=== PATIENT | male | born 1965 | race Caucasian/White ===

== ENCOUNTER 2023-04-10 16:43 | Observation (INO) ==
--- NOTE | 2023-04-10 16:59 | ED Triage Note ---
Date of Service April 10, 2023 History of Present Illness This patient was briefly evaluated while in triage. An abbreviated physical exam was performed. This patient is a 58-year-old Male who presents to the ED for evaluation of sinus infection. Went to [facility] at [facility] on [address]. Started on A moxicillin and has not helped and now feel worse. Went back today and blood pressure was elevated. On 2 blood pressure medicines. Normally take at night. Takes 180 of cardia and 40mg of lisinopril. No dizzy or lightheaded. Sinus congestion for 2-3 weeks. Notes sinus congestion. At [facility] on Sunday for granddaughter and one person found out had RSV. Notes many family members with cold sx. Physical Exam GENERAL: 58 year old male. In no acute distress. Elevated BP. SKIN: No lesions or rashes. HEART: Regular rate and rhythm. LUNGS: Clear to auscultation. NEURO: Alert and oriented. No deficits. MUSCULOSKELETAL: No deformities to inspection of the extremities. PSYCH: Patient is pleasant and answers all questions appropriately. Initial orders for labs and / or imaging were placed and patient was placed in the waiting area until a bed is available. Please see further documentation for the full ED course.
--- NOTE | 2023-04-10 17:23 | CT Scan Report ---
HEAD CT NONCONTRAST CT DOSE: 625.8 mGy.cm HISTORY: Forehead/facial pain with sinus congestion, HTN TECHNIQUE: Multiaxial CT images of the head were performed without the use of intravenous contrast. A utomated exposure control was utilized for this study. A dose lowering technique was utilized adheri ng to the principles of ALARA. Comparison: CT sinuses 04/03/2016. Findings: The paranasal sinuses and mastoid air cells are clear. The calvarium and skull base are int act. The ventricles and sulci are within normal limits. There is no mass, hematoma, midline shift, or acute infarct. Impression: No acute intracranial abnormality. ACT 112: Negative or not required by law. Electronically signed by: Juanjo Ferrell M.D. 04/10/2023 5:22 PM
[2023-04-10 17:29] LABS: Basophils # (auto) 0.05 K/uL (0.00-0.20); Basophils % (auto) 0.6 %; Eosinophils # (auto) 0.16 K/uL (0.00-0.50); Eosinophils % (auto) 1.9 %; Hematocrit (blood only) 46.1 % (42.0-52.0); Hemoglobin 15.2 g/dl (14.0-18.0); Immature Granulocytes # (auto) 0.03 K/uL (0.01-0.20); Immature Granulocytes % (auto) 0.3 %; Lymphocytes % (auto) 30.2 %; Mean Corpuscular Volume 91.1 fL (80.0-100.0); Mean Platelet Volume 9.4 fL (9.4-12.4); Monocytes # (auto) 0.86 K/uL (0.11-0.59); Neutrophils # (auto) 4.92 K/uL (1.40-6.50); Platelet Count 319 K/uL (130-400); RDW Coefficient of Variation 12.6 % (11.5-14.5); RDW Standard Deviation 42.2 fL (36.4-46.3); Red Blood Count 5.06 M/uL (4.70-6.10); White Blood Count 8.62 K/ul (4.8-10.8)
--- NOTE | 2023-04-10 17:29 | XRay Report ---
XR chest 1V not portable HISTORY: Hypertension. COMPARISON: None. FINDINGS: The cardiac silhouette is top normal in size. No focal lung consolidations to suggest pneum onia. No evidence for pulmonary edema. No pleural effusions. No pneumothorax. No acute fractures. Haz y appearance to the right medial lung base likely represents prominent mediastinal fat. IMPRESSION: No acute process. ACT 112: Negative or not required by law. Electronically signed by: Juanjo Ferrell M.D. 04/10/2023 5:28 PM
[2023-04-10 17:43] LABS: Albumin Globulin Ratio 1.3 (0.9-2); BUN Creatinine Ratio 14.4 (10-20); Bilirubin,Total 0.3 mg/dl (0.2-1.0); Calcium 8.9 mg/dl (8.6-10.3); Creatinine Clr Calc Pharmacy 93.1 ml/min; Est GFR (African American) 78.4 ml/min; Est GFR (Non-African American) 67.6 ml/min; Globulin 3.1 gm/dl (2.5-4.0); Magnesium 2.1 mg/dl (1.7-2.4); Potassium 3.9 mmol/L (3.5-5.1); Total Protein 7.1 gm/dl (6.0-8.3)
[2023-04-10 17:50] LABS: Troponin I High Sensitivity 6.3 pg/ml (0-20)
[2023-04-10 17:53] LABS: INR 0.9 (0.9-1.1); Partial Thromboplastin Ratio 1.1; Partial Thromboplastin Time 30.9 Seconds (21.0-31.0); Prothrombin Time 10.2 Seconds (9.0-12.0)
[2023-04-10 17:59] LABS: Thyroid Stimulating Hormone 1.672 uIu/ml (0.300-4.500)
[2023-04-10] MEDS ORDERED: KETOROLAC TROMETHAMINE 15 MG/ML VIAL IV ONE (18:56)
--- NOTE | 2023-04-10 18:59 | Emergency Department Note ---
Impression & Plan Hypertensive urgency, Headache, Sinusitis ED Provider Note NAME: LEEANN BADILLO III AGE: 58 SEX: M : 1965 ARRIVES VIA: Walk-In INFORMANT: Patient ED PROVIDER(S): Cory Thomas DO CHIEF COMPLAINT: HTN HPI: Patient is a 58-year-old male who presents to the ER for elevated blood pressures. Patient was treated for sinusitis with amoxicillin and went back to urgent care today as the pain was still present and anterior aspect of his head. Pain is worse when he pushes on these regions. He notes he is very stressed currently as his son is in rehab for drug and alcohol for the second time. He takes his blood pressure medications at night. He believes he is on 180 of lisinopril and 40 of lisinopril. Patient denies any chest pain shortness of breath. No weakness or numbness in the arms or legs. No other exacerbating or remitting factors. ADDITIONAL HISTORY OBTAINED: Per HPI Chronic Medical/Social Conditions Affecting Care: Per HPI PAST MEDICAL HISTORY:See Below PAST SURGICAL HISTORY:See Below FAMILY HISTORY:See Below SOCIAL HISTORY:See Below HOME MEDICATIONS:See Below ALLERGIES:See Below VITALS:See Below PHYSICAL EXAMINATION: GENERAL: Sitting up in bed, alert, well appearing, well nourished, no distress, non-toxic EYE EXAM: normal conjunctiva. PERRL and EOM's grossly intact. HEAD: Tenderness over the frontal and maxillary sinuses OROPHARYNX: no exudate, no erythema, lips, buccal mucosa, and tongue normal and mucous membranes are moist NECK: supple, no nuchal rigidity, no adenopathy, non-tender LUNGS: Clear to auscultation. Normal chest wall mechanics HEART: no murmurs, S1 normal and S2 normal ABDOMEN: abdomen soft, non-tender, normo-active bowel sounds, no masses, no rebound or guarding. UPPER EXTREMITIES: upper extremities are grossly normal. LOWER EXTREMITIES: No pitting edema. NEURO EXAM: Normal sensorium, cranial nerves II-XII intact, normal speech, no weakness of arms, no weakness of legs. No drift. Finger to nose intact. Gross sensation intact. MEDICAL DECISION MAKING: Patient is a 58-year-old male who presents ER for above-stated complaint. IV was established blood work was obtained. External records reviewed. Labs show no significant leukocytosis or anemia. INR unremarkable. BMP with LFTs bilirubin was unremarkable. Troponin was negative. Lipase was normal. TSH was normal. Chest x-ray was unremarkable. EKG was nondiagnostic. CT head was negative. X-ray was unremarkable. Systolic pressures were 240s to 200s. He was initially given his home medications and monitored for over an hour and blood pressure still remained in the 200s. He was then given IV hydralazine. Dr. Mandel requested IV Cardizem 10 mg which was ordered by myself. He was monitored and admitted to the hospitalist service for persistent elevation in his blood pressures. He was given IV Toradol as well External Records Reviewed: Seen by Dr. Mccollum on 08/2021 for degenerative joint disease Consults/Care Managements Discussions: Per [facility] Triage Nursing notes reviewed. Limited review of prior medical records performed Vital Signs: reviewed and remarkable for HTN Differential diagnosis: Differential Diagnosis includes but is not limited to headache, tension headache, cluster headache, migraine, subarachnoid hemorrhage, meningitis, mass, central venous thrombus, concussion, trauma and epidural/subdural hemorrhage. ER treatment provided: See below Diagnostics interpreted by me include EKG and cardiac monitoring as listed below: -Cardiac Monitoring: An order was placed for continuous cardiac monitoring. The monitor shows a rate of 90 with sinus rhythm. -ECG: Sinus rhythm rate 85 Normal axis No PVCs QTc 449 -Laboratory studies:Interpreted by me as stated above in MDM and shown below. Imaging studies: Xrays: As interpreted by me: portable AP upright 1 view of the chest shows no focal CTs show: CT head was Procedures:none Critical Care: I have personally spent 31 minutes of critical care time in the direct management of this patient. This includes bedside care, interpretation of diagnostic studies, and testing, discussion with consultants, patient, and family members, and other required patient management activities. This 31 minutes is in excess of all separately billable procedures. Past Med/Surg History Medical History (Updated 04/10/23 @ 22:19 by Cory Thomas DO) Hypertension Social History Smoking Status: Never smoker Preferred Language: Setswana Feels Safe at Home: Yes Allergies Allergies Allergy/AdvReac Type Severity Reaction Status Date / Time No Known Allergies Verified 04/10/23 19:14 Home Meds Home Medications Medication Instructions Recorded Confirmed acetaminophen 500 mg tablet 1,000 mg PO Q6H PRN PAIN/FEVER 03/01/20 04/10/23 (Tylenol Extra Strength) montelukast 10 mg tablet 10 mg PO HS 03/01/20 04/10/23 (Singulair) ibuprofen 200 mg tablet 600 mg PO Q6H PRN PAIN/FEVER 09/01/21 04/10/23 amoxicillin 875 mg-potassium 1 tab PO BID 04/10/23 04/10/23 clavulanate 125 mg tablet diltiazem HCl 180 mg 180 mg PO HS 04/10/23 04/10/23 capsule,extended release 24 hr lisinopril 40 mg tablet 40 mg PO HS 04/10/23 04/10/23 paroxetine HCl 20 mg tablet 20 mg PO HS 04/10/23 04/10/23 Results & Data (ED) Vital Signs Vital Signs - 24 hr 04/10/23 16:54 04/10/23 19:12 04/10/23 19:12 Temperature 36.7 C Temperature Source Temporal Artery Scan Pulse Rate 87 Pulse Rate [Apical] 83 Pulse Rate from SpO2 Sensor Respiratory Rate 17 20 Respiratory Effort / Characteristics Non-Labored Spontaneous Non-Labored Spontaneous Respiratory Depth Normal Normal Respiratory Pattern Regular Blood Pressure 241/121 H Blood Pressure [Left Arm] Blood Pressure [Right Arm] 209/111 H Blood Pressure Mean 161 Blood Pressure Mean [Left Arm] Blood Pressure Mean [Right Arm] 143 Blood Pressure Position Sitting Blood Pressure Position [Left Arm] Pulse Oximetry 99 96 96 Oxygen Delivery Method Room Air Room Air Room Air Sepsis Recent Fever Within 48 Hours No Sepsis New/Unexplained Change in Mental Status No Sepsis Action Taken by Nursing No Action Required 04/10/23 19:20 04/10/23 19:23 04/10/23 19:30 Temperature Temperature Source Pulse Rate 84 88 84 Pulse Rate [Apical] Pulse Rate from SpO2 Sensor 84 86 Respiratory Rate 16 14 Respiratory Effort / Characteristics Respiratory Depth Respiratory Pattern Blood Pressure Blood Pressure [Left Arm] Blood Pressure [Right Arm] Blood Pressure Mean Blood Pressure Mean [Left Arm] Blood Pressure Mean [Right Arm] Blood Pressure Position Blood Pressure Position [Left Arm] Pulse Oximetry 94 95 Oxygen Delivery Method Sepsis Recent Fever Within 48 Hours Sepsis New/Unexplained Change in Mental Status Sepsis Action Taken by Nursing 04/10/23 19:30 04/10/23 19:35 04/10/23 19:35 Temperature Temperature Source Pulse Rate 82 Pulse Rate [Apical] Pulse Rate from SpO2 Sensor 82 Respiratory Rate 16 Respiratory Effort / Characteristics Respiratory Depth Respiratory Pattern Blood Pressure 178/108 H 197/122 H Blood Pressure [Left Arm] Blood Pressure [Right Arm] Blood Pressure Mean 124 155 Blood Pressure Mean [Left Arm] Blood Pressure Mean [Right Arm] Blood Pressure Position Blood Pressure Position [Left Arm] Pulse Oximetry 95 Oxygen Delivery Method Sepsis Recent Fever Within 48 Hours Sepsis New/Unexplained Change in Mental Status Sepsis Action Taken by Nursing 04/10/23 19:37 04/10/23 19:38 04/10/23 19:38 Temperature Temperature Source Pulse Rate 82 Pulse Rate [Apical] 81 Pulse Rate from SpO2 Sensor 82 Respiratory Rate 17 Respiratory Effort / Characteristics Respiratory Depth Respiratory Pattern Blood Pressure 185/110 H Blood Pressure [Left Arm] Blood Pressure [Right Arm] 197/122 H Blood Pressure Mean 159 Blood Pressure Mean [Left Arm] Blood Pressure Mean [Right Arm] 147 Blood Pressure Position Blood Pressure Position [Left Arm] Pulse Oximetry 97 Oxygen Delivery Method Sepsis Recent Fever Within 48 Hours Sepsis New/Unexplained Change in Mental Status Sepsis Action Taken by Nursing 04/10/23 19:39 04/10/23 19:40 04/10/23 19:50 Temperature Temperature Source Pulse Rate 81 81 Pulse Rate [Apical] 81 Pulse Rate from SpO2 Sensor 82 79 Respiratory Rate 20 18 Respiratory Effort / Characteristics Respiratory Depth Respiratory Pattern Blood Pressure Blood Pressure [Left Arm] 185/110 H Blood Pressure [Right Arm] Blood Pressure Mean Blood Pressure Mean [Left Arm] 135 Blood Pressure Mean [Right Arm] Blood Pressure Position Blood Pressure Position [Left Arm] Sitting Pulse Oximetry 97 95 Oxygen Delivery Method Room Air Sepsis Recent Fever Within 48 Hours Sepsis New/Unexplained Change in Mental Status Sepsis Action Taken by Nursing 04/10/23 20:00 04/10/23 20:00 04/10/23 20:10 Temperature Temperature Source Pulse Rate 84 80 Pulse Rate [Apical] Pulse Rate from SpO2 Sensor 83 77 Respiratory Rate 17 20 Respiratory Effort / Characteristics Respiratory Depth Respiratory Pattern Blood Pressure 197/139 H Blood Pressure [Left Arm] Blood Pressure [Right Arm] Blood Pressure Mean 162 Blood Pressure Mean [Left Arm] Blood Pressure Mean [Right Arm] Blood Pressure Position Blood Pressure Position [Left Arm] Pulse Oximetry 95 Oxygen Delivery Method Sepsis Recent Fever Within 48 Hours Sepsis New/Unexplained Change in Mental Status Sepsis Action Taken by Nursing 04/10/23 20:20 04/10/23 20:30 04/10/23 20:30 Temperature Temperature Source Pulse Rate 81 82 Pulse Rate [Apical] Pulse Rate from SpO2 Sensor 76 82 Respiratory Rate 19 17 Respiratory Effort / Characteristics Respiratory Depth Respiratory Pattern Blood Pressure 199/119 H Blood Pressure [Left Arm] Blood Pressure [Right Arm] Blood Pressure Mean 135 Blood Pressure Mean [Left Arm] Blood Pressure Mean [Right Arm] Blood Pressure Position Blood Pressure Position [Left Arm] Pulse Oximetry 96 97 Oxygen Delivery Method Room Air Sepsis Recent Fever Within 48 Hours Sepsis New/Unexplained Change in Mental Status Sepsis Action Taken by Nursing 04/10/23 20:40 04/10/23 20:50 04/10/23 21:00 Temperature Temperature Source Pulse Rate 78 78 87 Pulse Rate [Apical] Pulse Rate from SpO2 Sensor 76 70 89 Respiratory Rate 18 17 19 Respiratory Effort / Characteristics Respiratory Depth Respiratory Pattern Blood Pressure Blood Pressure [Left Arm] Blood Pressure [Right Arm] Blood Pressure Mean Blood Pressure Mean [Left Arm] Blood Pressure Mean [Right Arm] Blood Pressure Position Blood Pressure Position [Left Arm] Pulse Oximetry 97 98 96 Oxygen Delivery Method Room Air Sepsis Recent Fever Within 48 Hours Sepsis New/Unexplained Change in Mental Status Sepsis Action Taken by Nursing 04/10/23 21:01 04/10/23 21:01 04/10/23 21:10 Temperature Temperature Source Pulse Rate 79 82 Pulse Rate [Apical] Pulse Rate from SpO2 Sensor 80 81 Respiratory Rate 16 20 Respiratory Effort / Characteristics Respiratory Depth Respiratory Pattern Blood Pressure 199/121 H Blood Pressure [Left Arm] Blood Pressure [Right Arm] Blood Pressure Mean 134 Blood Pressure Mean [Left Arm] Blood Pressure Mean [Right Arm] Blood Pressure Position Blood Pressure Position [Left Arm] Pulse Oximetry 97 98 Oxygen Delivery Method Room Air Sepsis Recent Fever Within 48 Hours Sepsis New/Unexplained Change in Mental Status Sepsis Action Taken by Nursing 04/10/23 21:20 04/10/23 21:22 04/10/23 21:22 Temperature Temperature Source Pulse Rate 104 H 80 Pulse Rate [Apical] Pulse Rate from SpO2 Sensor 81 Respiratory Rate 19 13 Respiratory Effort / Characteristics Respiratory Depth Respiratory Pattern Blood Pressure 201/116 H Blood Pressure [Left Arm] Blood Pressure [Right Arm] Blood Pressure Mean 157 Blood Pressure Mean [Left Arm] Blood Pressure Mean [Right Arm] Blood Pressure Position Blood Pressure Position [Left Arm] Pulse Oximetry 97 Oxygen Delivery Method Sepsis Recent Fever Within 48 Hours Sepsis New/Unexplained Change in Mental Status Sepsis Action Taken by Nursing 04/10/23 21:30 04/10/23 21:30 04/10/23 21:40 Temperature Temperature Source Pulse Rate 77 84 Pulse Rate [Apical] Pulse Rate from SpO2 Sensor 80 84 Respiratory Rate 15 14 Respiratory Effort / Characteristics Respiratory Depth Respiratory Pattern Blood Pressure 169/109 H Blood Pressure [Left Arm] Blood Pressure [Right Arm] Blood Pressure Mean 120 Blood Pressure Mean [Left Arm] Blood Pressure Mean [Right Arm] Blood Pressure Position Blood Pressure Position [Left Arm] Pulse Oximetry 98 98 Oxygen Delivery Method Sepsis Recent Fever Within 48 Hours Sepsis New/Unexplained Change in Mental Status Sepsis Action Taken by Nursing 04/10/23 21:50 04/10/23 22:00 04/10/23 22:00 Temperature Temperature Source Pulse Rate 87 90 Pulse Rate [Apical] Pulse Rate from SpO2 Sensor 88 87 Respiratory Rate 17 21 Respiratory Effort / Characteristics Respiratory Depth Respiratory Pattern Blood Pressure 207/120 H Blood Pressure [Left Arm] Blood Pressure [Right Arm] Blood Pressure Mean 133 Blood Pressure Mean [Left Arm] Blood Pressure Mean [Right Arm] Blood Pressure Position Blood Pressure Position [Left Arm] Pulse Oximetry 99 99 Oxygen Delivery Method Sepsis Recent Fever Within 48 Hours Sepsis New/Unexplained Change in Mental Status Sepsis Action Taken by Nursing 04/10/23 22:10 Temperature Temperature Source Pulse Rate 105 H Pulse Rate [Apical] Pulse Rate from SpO2 Sensor 98 H Respiratory Rate 23 Respiratory Effort / Characteristics Respiratory Depth Respiratory Pattern Blood Pressure Blood Pressure [Left Arm] Blood Pressure [Right Arm] Blood Pressure Mean Blood Pressure Mean [Left Arm] Blood Pressure Mean [Right Arm] Blood Pressure Position Blood Pressure Position [Left Arm] Pulse Oximetry 98 Oxygen Delivery Method Room Air Sepsis Recent Fever Within 48 Hours Sepsis New/Unexplained Change in Mental Status Sepsis Action Taken by Nursing Laboratory Data 04/10/23 17:08 04/10/23 17:08 Lab Results 04/10/23 Range/Units 17:08 WBC 8.62 (4.8-10.8) K/ul RBC 5.06 (4.70-6.10) M/uL Hgb 15.2 (14.0-18.0) g/dl Hct 46.1 (42.0-52.0) % MCV 91.1 (80.0-100.0) fL MCH 30.0 (25.0-34.0) pg MCHC 33.0 (32.0-36.0) g/dL RDW Std Deviation 42.2 (36.4-46.3) fL RDW Coeff of Sergio 12.6 (11.5-14.5) % Plt Count 319 (130-400) K/uL MPV 9.4 (9.4-12.4) fL Immature Gran % (Auto) 0.3 % Neut % (Auto) 57.0 % Lymph % (Auto) 30.2 % Price % (Auto) 10.0 % Eos % (Auto) 1.9 % Baso % (Auto) 0.6 % Neut # (Auto) 4.92 (1.40-6.50) K/uL Lymph # (Auto) 2.60 (1.20-3.40) K/uL Price # (Auto) 0.86 H (0.11-0.59) K/uL Eos # (Auto) 0.16 (0.00-0.50) K/uL Baso # (Auto) 0.05 (0.00-0.20) K/uL Immature Gran # (Auto) 0.03 (0.01-0.20) K/uL PT 10.2 (9.0-12.0) Seconds INR 0.9 (0.9-1.1) APTT 30.9 (21.0-31.0) Seconds PTT Ratio 1.1 Sodium 139 (136-145) mmol/L Potassium 3.9 (3.5-5.1) mmol/L Chloride 105 (98-107) mmol/L Carbon Dioxide 29 (21-32) mmol/L Anion Gap 5 (3-11) BUN 17 (6-23) mg/dl Creatinine 1.18 (0.6-1.4) mg/dl Est Cr Clr Drug Dosing 93.1 ml/min Est GFR ( Amer) 78.4 ml/min Est GFR (Non-Af Amer) 67.6 ml/min BUN/Creatinine Ratio 14.4 (10-20) Glucose 103 H (70-99(Fasting)) mg/dl Calcium 8.9 (8.6-10.3) mg/dl Magnesium 2.1 (1.7-2.4) mg/dl Total Bilirubin 0.3 (0.2-1.0) mg/dl AST 18 (13-39) U/L ALT 16 (7-52) U/L Alkaline Phosphatase 93 (34-104) U/L Troponin I High Sens 6.3 (0-20) pg/ml Total Protein 7.1 (6.0-8.3) gm/dl Albumin 4.0 (3.4-5.0) gm/dl Globulin 3.1 (2.5-4.0) gm/dl Albumin/Globulin Ratio 1.3 (0.9-2) Lipase 10 L (11-82) U/L TSH 1.672 (0.300-4.500) uIu/ml Administered Medications Discontinued Medications Diltiazem HCl (Diltiazem Hcl 180 Mg Capcr) 180 mg PO NOW STA Stop: 04/10/23 19:23 Last Admin: 04/10/23 19:38 Dose: 180 mg Documented By: Hydralazine HCl (Hydralazine Hcl 20 Mg/Ml Vial) 10 mg IV NOW STA Stop: 04/10/23 21:22 Last Admin: 04/10/23 21:28 Dose: 10 mg Documented By: JAMEE Ketorolac Tromethamine (Ketorolac Tromethamine 15 Mg/Ml Vial) 15 mg IV NOW ONE Stop: 04/10/23 18:57 Last Admin: 04/10/23 19:06 Dose: 15 mg Documented By: JAMEE Lisinopril (Lisinopril 40 Mg Tab) 40 mg PO NOW STA Stop: 04/10/23 19:23 Last Admin: 04/10/23 19:38 Dose: 40 mg Documented By: Imaging Data Radiologist's Impression: Chest X-Ray 04/10/23 16:59 XR chest 1V not portable HISTORY: Hypertension. COMPARISON: None. FINDINGS: The cardiac silhouette is top normal in size. No focal lung consolidations to suggest pneumonia. No evidence for pulmonary edema. No pleural effusions. No pneumothorax. No acute fractures. Hazy appearance to the right medial lung base likely represents prominent mediastinal fat. IMPRESSION: No acute process. ACT 112: Negative or not required by law. Electronically signed by: Juanjo Ferrell M.D. 04/10/2023 5:[address] 04/10/23 16:[address] DOSE: 625.8 mGy.cm HISTORY: Forehead/facial pain with sinus congestion, HTN TECHNIQUE: Multiaxial CT images of the head were performed without the use of intravenous contrast. Automated exposure control was utilized for this study. A dose lowering technique was utilized adhering to the principles of ALARA. Comparison: CT sinuses 04/03/2016. Findings: The paranasal sinuses and mastoid air cells are clear. The calvarium and skull base are intact. The ventricles and sulci are within normal limits. There is no mass, hematoma, midline shift, or acute infarct. Impression: No acute intracranial abnormality. ACT 112: Negative or not required by law. Electronically signed by: Juanjo Ferrell M.D. 04/10/2023 5:22 PM Discharge Plan Visit Data Chief Complaint: Hypertension Stated Complaint: BP VERY HIGH ED Provider: Cory Thomas Discharge Problem: Hypertensive urgency, Headache, Sinusitis Forms Stand Alone Forms: My [facility] Prescriptions Prescriptions: No Action ibuprofen 200 mg tablet 600 mg PO Q6H PRN (Reason: PAIN/FEVER) acetaminophen [Tylenol Extra Strength] 500 mg Tablet 1,000 mg PO Q6H PRN (Reason: PAIN/FEVER) montelukast [Singulair] 10 mg Tablet 10 mg PO HS diltiazem HCl 180 mg capsule,extended release 24hr 180 mg PO HS paroxetine HCl 20 mg tablet 20 mg PO HS lisinopril 40 mg tablet 40 mg PO HS amoxicillin-pot clavulanate 875-125 mg tablet 1 tab PO BID Rx Instructions: STARTED 04/06/23 FOR 10 DAYS Referrals Referrals: PCP,NO [Primary Care Provider] - Discharge Problem: Headache Qualifiers: Headache type: unspecified Headache chronicity pattern: acute headache Sinusitis Qualifiers: Sinusitis location: frontal Chronicity: acute Recurrence: not specified as recurrent Qualified Code(s): J01.10 - Acute frontal sinusitis, unspecified
[2023-04-10] MEDS ORDERED: lisinopril 40 MG TAB PO STA (19:22)
[2023-04-10] MEDS ORDERED: dilTIAZem HCL 180 MG CAPCR PO STA (19:22)
[2023-04-10] MEDS ORDERED: lisinopril 40 MG TAB PO SCH (19:30)
[2023-04-10] MEDS ORDERED: dilTIAZem HCL 180 MG CAPCR PO SCH ×2 (19:30)
[2023-04-10] MEDS ORDERED: hydrALAZINE HCL 20 MG/ML VIAL IV STA (21:21)
[2023-04-10] MEDS ORDERED: DOXYCYCLINE HYCLATE 100 MG CAP PO STA (21:57)
[2023-04-10] MEDS ORDERED: dilTIAZem HCl 5 MG/ML 5 ML VIAL IV STA (22:10)
--- NOTE | 2023-04-10 22:20 | History & Physical Report ---
Date of Service April 10, 2023 Assessment & Plan (1) Hypertensive urgency: Plan: 58 year old male coming in for hypertensive urgency. Hypertensive urgency: -History of high blood pressure treated at home with diltiazem 180mg and lis inopril 40mg qHS. -High blood pressure discovered today at urgent care, continues into the ER visit with BP as high as 241/121. -No evidence of end organ damage on blood work, negative CT head. -Given 10mg of IV diltiazem, can continue with 30mg QID until BP stabilizes below 180 systolic and 90 diastolic. -Likely HTN urgency episode secondary to pain from sinuses and anxiety. -Sinus treatment as below. -Anxiety treatment as below. -May be worth while to increase patient's diltiazem to 240mg daily on discharge. -Trend daily cbc and cmp to check for any organ damage. -admit to telemetry. Sinusitis: -CT head showed clear paranasal sinuses and mastoid air cells clear. -Sinusitis symptoms have been since Sunday and not improved (5 days). -Had been on Augmentin without relief. Given dose of doxycycline in the ER. -Given physical exam findings likely some aspect of inflammation of eustachian tube on the R side. -May be allergies, change in weather. -Will continue patient's home singulair, start on Flonase BID. -Could continue doxycycline for anti-inflammatory effect, less suspicion for active bacterial infection at the current time. Anxiety: -Likely big component of the blood pressure stems from anxiety related to recent life stressors in combination with the facial discomfort above. -On paroxetine 20mg daily, patient willing to go up for anxiety. Will increase 30mg for now, continue on discharge. -Can place on hydroxyzine PRN as well. F/E/N/GI: Heart Healthy DVT Prophylaxis: Patient ambulatory no chemoprophylaxis needed, could add if staying more than 1 day. Code: Full Dispo: Telemetry. Patient has outpatient follow up with new PCP Dr. Gómez on 04/24. May benefit from sooner evaluation after discharge for blood pressure. (2) Sinusitis: (3) Anxiety: History of Present Illness Chief Complaint: Hypertensive urgency Primary Care Provider: NO PCP Fransisco is a 58 year old male w/ PmHx hypertension, anxiety, insomnia coming into the hospital from urgent care for high blood pressure. Patient states that last Sunday he had developed severe sinus pressure at the maxillary, frontal, and ethmoid sinuses. This was accompanied by post-nasal drip. He states that he went to urgent care on that Sunday for evaluation and was treated with Augmentin. Patient stated that by today he was not better from the Augmentin and so decided to go back to urgent care for evaluation. He was told at the urgent care that his blood pressure was elevated to 180/99 and had a neuro exam done without any deficits there. He was recommended to go to the emergency room for further evaluation. At the first visit to urgent care his blood pressure was 140/80. Patient states he has continued pressure over the sinuses but denies fevers, chills, shortness of breath, chest pain, paresthesias. He is on diltiazem 180mg and lisinopril 40mg qhs at home, the diltiazem was increased to 180mg from 120mg not too long ago due to a mild raise in his BP. Patient also states that he has a lot of anxiety/stress right now due to his step son who is in and out of rehab, at the current time in inpatient rehab and had written to patient's a letter blaming her for all the issues in his life. He is on paroxetine 20mg and is willing to go up in the dose. In the ER his blood work was grossly unremarkable for any signs of organ damage, CT head was negative (negative for signs of sinus infection), and CXR was negative. He was given his HS dose of diltiazem and lisinopril as well as 10mg hydralazine, 10mg of IV diltiazem, 100mg doxycycline. Allergies Allergy/AdvReac Type Severity Reaction Status Date / Time No Known Allergies Verified 04/10/23 19:14 Home Medications Medication Instructions Recorded Confirmed Type acetaminophen 500 mg tablet 1,000 mg PO Q6H PRN PAIN/FEVER 03/01/20 04/10/23 History (Tylenol Extra Strength) montelukast 10 mg tablet 10 mg PO HS 03/01/20 04/10/23 History (Singulair) ibuprofen 200 mg tablet 600 mg PO Q6H PRN PAIN/FEVER 09/01/21 04/10/23 History amoxicillin 875 mg-potassium 1 tab PO BID 04/10/23 04/10/23 History clavulanate 125 mg tablet diltiazem HCl 180 mg 180 mg PO HS 04/10/23 04/10/23 History capsule,extended release 24 hr lisinopril 40 mg tablet 40 mg PO HS 04/10/23 04/10/23 History paroxetine HCl 20 mg tablet 20 mg PO HS 04/10/23 04/10/23 History Past Med/Surg History Medical History (Updated 04/10/23 @ 22:33 by Cornelio Enciso DO) Hypertension Social History Smoking Status: Never smoker Hx Alcohol Use: Yes Hx Substance Use: No Preferred Language: Ukrainian Communication Ability: Effective 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 Physical Exam Constitutional: WD/WN, vitals as above Eyes: PERRL, conjunctivae normal, anicteric sclerae ENMT: external ear and nose normal, oropharynx normal Ears: + TM abnormality (R TM bulging with clear fluid level behind, still with good cone of light. ) TM on the L normal. Respiratory: normal respiratory effort, lungs clear to auscultation Cardiovascular: RRR, no murmur, no edema Gastrointestinal (Abdomen): normal bowel sounds, soft, nontender, no hepatosplenomegaly Skin: no rashes, warm and dry Psychiatric: A+Ox3, euthymic affect Results & Data Results & Data Vital Signs (Past 12 Hours) Vital Signs Temp Pulse Pulse Resp BP BP BP 04/10/23 22:10 105 H 23 04/10/23 22:00 90 21 04/10/23 22:00 207/120 H 04/10/23 21:50 87 17 04/10/23 21:40 84 14 04/10/23 21:30 169/109 H 04/10/23 21:30 77 15 04/10/23 21:22 80 13 04/10/23 21:22 201/116 H 04/10/23 21:20 104 H 19 04/10/23 21:10 82 20 04/10/23 21:01 79 16 04/10/23 21:01 199/121 H 04/10/23 21:00 87 19 04/10/23 20:50 78 17 04/10/23 20:40 78 18 04/10/23 20:30 199/119 H 04/10/23 20:30 82 17 04/10/23 20:20 81 19 04/10/23 20:10 80 20 04/10/23 20:00 84 17 04/10/23 20:00 197/139 H 04/10/23 19:50 81 18 04/10/23 19:40 81 20 04/10/23 19:39 81 185/110 H 04/10/23 19:38 82 17 04/10/23 19:38 185/110 H 04/10/23 19:37 81 197/122 H 04/10/23 19:35 197/122 H 04/10/23 19:35 82 16 04/10/23 19:30 178/108 H 04/10/23 19:30 84 14 04/10/23 19:23 88 04/10/23 19:20 84 16 04/10/23 19:12 83 20 209/111 H 04/10/23 19:12 04/10/23 16:54 36.7 C 87 17 241/121 H Pulse Ox O2 Del Method 04/10/23 22:10 98 Room Air 04/10/23 22:00 99 04/10/23 22:00 04/10/23 21:50 99 04/10/23 21:40 98 04/10/23 21:30 04/10/23 21:30 98 04/10/23 21:22 97 04/10/23 21:22 04/10/23 21:20 04/10/23 21:10 98 Room Air 04/10/23 21:01 97 04/10/23 21:01 04/10/23 21:00 96 04/10/23 20:50 98 04/10/23 20:40 97 Room Air 04/10/23 20:30 04/10/23 20:30 97 04/10/23 20:20 96 Room Air 04/10/23 20:10 95 04/10/23 20:00 04/10/23 20:00 04/10/23 19:50 95 Room Air 04/10/23 19:40 97 04/10/23 19:39 04/10/23 19:38 97 04/10/23 19:38 11/21/23 19:37 04/10/23 19:35 04/10/23 19:35 95 04/10/23 19:30 04/10/23 19:30 95 04/10/23 19:23 04/10/23 19:20 94 04/10/23 19:12 96 Room Air 04/10/23 19:12 96 Room Air 04/10/23 16:54 99 Room Air Supervising Physician Co-Signing Physician Notes Attending addendum: I have physically seen this patient, have supervised the medical residents activities, and agree with the H&P unless as otherwise noted. Assessment and Plan: Uncontrolled hypertension- Aggravating factors including anxiety regarding son, and pain from sinusitis Continue diltiazem CD180 mg and lisinopril 40 mg at bedtime, with dose given this evening Give diltiazem 10 mg IV now, and then 30 mg p.o. 4 times daily, with first dose now Patient may benefit from change management manager in the morning to diltiazem CD180 mg p.o. twice daily Sinusitis- No improvement on 5 days of Augmentin He was given doxycycline 100 mg p.o. by the ED Starting Flonase twice daily as noted Continue doxycycline 100 mg p.o. twice daily Anxiety- Continue paroxetine 20 mg daily and increase as noted Given a dose of hydroxyzine 25 mg x 1, and if satisfactory, can place 4 times daily as needed Resident Activity Tracking Resident Involvement: Resident Care Provided Care Provided: Adult Hospital Medicine (2) Sinusitis Chronicity: acute Recurrence: not specified as recurrent Sinusitis location: frontal Qualified Code(s): J01.10 - Acute frontal sinusitis, unspecified
[2023-04-10] MEDS ORDERED: dilTIAZem HCL 30 MG TAB PO ONE (23:57)
--- OUTSIDE RECORDS SUMMARY | 2023-04-11 00:59 | External Medical Summary | Continuity of Care Document ---
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 Name Role Phone Trang Padilla Primary Care Physician [phone] Encounter [facility] [id number] Date(s): 10/12/22 - 10/12/22 [facility] [address] [id number] [facility] [address] [facility] [address] [place] [address] Encounter Diagnosis Right foot pain(Discharge Diagnosis) - 10/12/22 Achilles tendinosis of right ankle(Discharge Diagnosis) - 10/12/22 Discharge Disposition: Home or Self Care Attending Physician: MD Kenya, Gareth A Allergies, Adverse Reactions, Alerts No Known Allergies Immunizations Given and Recorded Vaccine Date Status Refusal Reason SARS-CoV-2 (COVID-19) mRNA BNT-162b2 vax 1 09/09/20 Recorded SARS-CoV-2 (COVID-19) mRNA BNT-162b2 vax 2 08/19/20 Recorded influenza virus vaccine, inactivated 03/20/18 Pantera rded tetanus/diphtheria/pertuss, acel (Tdap) 09/11/07 R ecorded 1Result Comment: 2022-01-03: Historical information-source unspecified 2Result Comment: 2022-01-03: Historical information-source unspecified Medications DilTIAZem (Eqv-Cardizem CD) 180 mg/24 hours oral capsule, extended release Start: 09/20/22 9:07:00 EDT, See Instructions, Disp# 30 cap, Refills: 0, Take 1 capsule by mouth once daily, Pharmacy: [facility] Start Date: 09/20/22 Status: Ordered Flonase 50 mcg/inh nasal spray Start: 03/30/21 12:46:00 EST, 2 spray, intranasal, Daily, Disp# 1 each, Refills: 3, Pharmacy: [facility] Start Date: 03/30/21 Status: Ordered lisinopril 40 mg oral tablet Start: 07/04/22 15:38:00 EST, See Instructions, Disp# 30 tab, Refills: 5, Take 1 tablet by mouth once daily, Pharmacy: [facility] [address] Start Date: 07/04/22 Status: Ordered montelukast 10 mg oral tablet Start: 06/20/22 11:05:00 EST, See Instructions, Disp# 30 tab, Refills: 5, TAKE 1 TABLET BY MOUTH ONCE DAILY IN THE EVENING, Pharmacy: [facility] Start Date: 06/20/22 Status: Ordered PARoxetine 20 mg oral tablet Start: 09/20/22 9:07:00 EDT, See Instructions, Disp# 30 tab, Refills: 0, Take 1 tablet by mouth once daily, Pharmacy: [facility] Start Date: 09/20/22 Status: Ordered Mental Status 10/12/22 Barriers to Learning one year None evide nt Mandatory Health Literacy Documentation Yes Health Literacy Communication Barriers N ever Primary Language Qatari Problem List Condition Confirmation Course Effective Dates Status H ealth Status Informant Actinic keratosis Confirmed Active ANXIETY Confirmed 07/07/10 Active Multiple nevi Confirmed Active Achilles tendinosis of right ankle Confirmed Active Atypical nevus Confirmed Active Family history of melanoma Confirmed Active Right foot pain Confirmed Active H/O moderate sun exposure Confirmed Active Hyperlipidemia Confirmed Active HBP (high blood pressure) Confirmed Active Impaired fasting glucose Confirmed Active INSOMNIA Confirmed 07/07/10 Active Sinus pressure Confirmed Active Non-allergic rhinitis Confirmed Active Screening for lipid disorders Confirmed Active Health maintenance examination Confirmed Active Screening for diabetes mellitus (DM) Confirmed Active PND (post-nasal drip) Confirmed Active Seborrheic keratoses Confirmed Active Benítez angioma Confirmed Active Sinusitis Confirmed Active Skin tag Confirmed Active Weight disorder Confirmed Active Diagnosis Diagnosis Type Effective Dates Health Status Clinical Service Informant Right foot pain Discharge Diagnosis 10/12/22 Achilles tendinosis of right ankle Discharge Diagnosis 10/12/22 Procedures Procedure Date Related Diagnosis Body Site Status Shave biopsy 1 09/11/22 Completed Colonoscopy 2, 3 01/29/18 Complete d CAT scan 4 04/03/16 Completed hernia repair- 2009 Compl eted 1A- left upper spone B- left upper spine 2one 4 mm polyp in the transverse colon, removed with a cold biopsy forceps.. Resected and retrieved. one 4 mm polyp in the mid ascending colon, removed with cold bipsy forceps. Resected and retrieved. Small llipoma in the proximal ascending colon The examined portion of the ileum was normal The examination was otherwise normal The distal rectum and anal verge are normal on retroflexion view 3pathology - Transverse colon -Colonic mucosa with small focus of serrated polyp compatible with sessile serrated polyp. Ascending colon - segments of colonic mucosa with no evidence of neoplasia. Reapt 5 years. 4fusion sinuses No evidence of acute sinusitis Polypoid mucosal thickening in the right maxilla sinus the ostiomeatal units are widely patent bilaterally. Social History Social History Type Response Smoking Status Never smoked cigaret santhosh Sex Ortho Outpt Note * MD Kenya, Gareth A: MODIFY Leah Rivera: PERFORM, MODIFY Leah Rivera: MODIFY Event Display: Ortho Outpt Note Authored Date: [id number] Name:LEEANN BADILLO Patient Number:[id number] :[id number] Date of Service:10/12/2022 CHIEF COMPLAINT: Right foot/heel pain H[id number] of right foot/heel pain starting several months ago. Patient reports since he startedwalking 15 minutes too and from the [facility] [employer] he developed right heel pain. Patient only wears one type of shoe. Patienthas been taking ibuprofen as needed for pain. Today he rates his pain an 8/10. PHYSICAL EXAM: Focusing on the patient'sright lower extremity: 2+ DP pulse Sensation to light touch is intact Motor to the gastroc soleus, tibialis anterior, and EHL is 5/5. +Tenderness to palpation at very distal Achilles insertion TraceSwelling compared to left heel - Tamez Test RADIOGRAPHY: I obtained and personally interpreted 3views of right foot including AP, oblique, and lateral viewswith no signs of acute fracture or dislocation. There is some spurring of the superior talar neck. Small calcification at Achilles insertion and small Gisell deformity. IMPRESSION: Right heel/foot pain secondarily to insertional Achilles tendinosis GOAL: Decrease pain PLAN: RICE Short course of anti-inflammatories alternating with Tylenol as needed for pain Obtain gel heel cups to put in both shoes. Discussed obtaining new shoes and potentially trying different heel backing that do not place significant pressure on the heel. Referral placed for formal PT Follow-up in 8-12 weeks The patient understood all my instructions and explanation; all their questions were satisfactorilyaddressed. ATTESTATION: I, Leah Rivera, scribing forand in the presence of, Gareth Zambrano, on this date,10/12/2022 15:28:57. I, Dr. Zambrano, saw and examined the patient with Leah Rivera acting as my scribe. I reviewed the note and agree with the documented findings and the plan of care I developed. Electronic Signature on File Electronically Reviewed/Signed by: Leah Rivera Author Signature Dt/Tm:10/12/2022 03:40 PM Electronically Reviewed/Signed by: Gareth Zambrano MD Cosigner Signature Dt/Tm: 10/12/2022 04:48 PM [facility] [employer] Mechan[employer] Department of Orthopaedics and Rehabilitation [facility] [address], [place] [address] KR Patient Care team information Care Team Personnel Name: MD Matteo, Harish Botello Position: Physician - Family Med Member Role: Lifetime Relationship Address: Address: [address] [place] [address] Name: RUSSEL Padilla Jill Nicole Position: Nurse Pract - Family Med Member Role: Primary Care Provider Address: Address: [address] [place] [id number] [place] Name: Elida Morales MD, Andres Position: Resident Member Role: Lifetime Relationship Address: Address: [address] [place] [address] Care Team Related Persons Name: MATHEW MARSHALL Address: [place] Address: home [address] [place] [id number] Name: MAXIMINO MARSHALL Address: [place] Address: home [address] [place] [phone] Name: JORGE A BADILLO Address: home [address] [place] [phone] Name: JORGE A BADILLO Address: [place] Address: home [address] [place] [id number] Name: MATHEW BADILLO Address: [place] Address: home [address] [place], [place] [id number] Name: HUMERA BADILLO Address: [place] Address: home [address] [place] [id number]
--- OUTSIDE RECORDS SUMMARY | 2023-04-11 00:59 | External Medical Summary | Continuity of Care Document ---
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 Name Role Phone Radha Gómez Primary Care Physician [phone] Encounter [facility] [place] [id number] Date(s): 12/04/22 - 12/04/22 [place] [address] [facility] [address] [phone] Encounter Diagnosis ANXIETY(Discharge Diagnosis) - 12/04/22 HBP (high blood pressure)(Discharge Diagnosis) - 12/04/22 Hyperlipidemia(Discharge Diagnosis) - 12/04/22 Family history of heart disease(Discharge Diagnosis) - 12/04/22 Colon cancer screening(Discharge Diagnosis) - 12/04/22 Prediabetes(Discharge Diagnosis) - 12/04/22 INSOMNIA(Discharge Diagnosis) - 12/04/22 Discharge Disposition: Home or Self Care Attending Physician: RUSSEL Padilla Jill Nicole Referring Physician: RUSSEL Padilla Jill Nicole Allergies, Adverse Reactions, Alerts No Known Allergies Assessment and Plan Extracted from: Title:Office Visit Note Author:RUSSEL Padilla Ji ll Nicole Date:12/04/22 1.ANXIETY stable chronic continue medication as prescribed continue to monitor 2.HBP (high blood pressure) BP recheck 132/82 encouraged healthy Mediterranean style diet and 150 minutes physical activity as tolerated continue medications as prescribed continue to monitor 3.Hyperlipidemia ASCVD risk 12+ strong cardiac family hx - brother from a heart attack at a young age strongly encouraged/advised a statin medication - risks, benefits, and possible side effects discussed today. He declines stating he would like to trial a healthy diet and physical activity for 3 months first. Risks of waiting to start treatment were discussed. He expresses understanding. We discussed diet as above. encouraged stopping sugary drinks as well. follow up with Dr. Gómez in 3 months - repeat cholesterol screen was ordered. 4.Prediabetes mildly increased A1c today diet and activity as above. Discussed limiting carbohydrates and cutting back on sugary drinks. Establish with ophthalmology follow up in 3 months and PRN 5.INSOMNIA -Develop a daily routine: regular wake up routine -Separate work space from sleep space. -Bring in the light. Keep your workspace brightly lit during the daytime. Absorb as much natural day light as possible. At night keep the lights low for 1-2 hours before bedtime -Step away from the computer during the day -Avoid caffeine especially later in the day -Set boundaries: limit the amount of time you spend checking e-mail. -Plan constructive worry time set aside 15 minutes-2 hours before bed each night. Write a list with worries or issues of concern to address the next day. -Stay physically and mentally active: plan activities you enjoy -Get other family members on board -Don t stir in bed at night: if you can t initiate or resume sleep within minutes, get up and go to another room or enjoy a quiet activity such as reading. Return to the bedroom once you feel sleepy again. Repeat this as many times as is necessary. Staying in bed can fuel insomnia. -Avoid using any electronic devices two hours before bed time. Consider keeping electronic devices out of your room entirely. hydroxyzine PRN at bedtime keep f/u in 3 months. Immunizations Given and Recorded Vaccine Date Status Refusal Reason SARS-CoV-2 (COVID-19) mRNA BNT-162b2 vax 1 09/09/20 Recorded SARS-CoV-2 (COVID-19) mRNA BNT-162b2 vax 2 08/19/20 Recorded influenza virus vaccine, inactivated 03/20/18 Pantera rded tetanus/diphtheria/pertuss, acel (Tdap) 09/11/07 R ecorded 1Result Comment: 2022-01-03: Historical information-source unspecified 2Result Comment: 2022-01-03: Historical information-source unspecified Medications DilTIAZem (Eqv-Cardizem CD) 180 mg/24 hours oral capsule, extended release Start: 12/04/22 11:43:00 EDT, See Instructions, Disp# 30 cap, Refills: 0, Take 1 capsule by mouth once daily, Pharmacy: [facility] Start Date: 12/04/22 Status: Ordered Flonase 50 mcg/inh nasal spray Start: 12/04/22 11:43:00 EDT, 2 spray, intranasal, Daily, Disp# 1 each, Refills: 3, Pharmacy: [facility] [address] Start Date: 12/04/22 Status: Ordered hydrOXYzine hydrochloride 25 mg oral tablet Start: 12/04/22 11:40:00 EDT, 1 tab, PO, qhs, Disp# 30 tab, PRN: as needed for anxiety, Pharmacy: [facility] [address] Start Date: 12/04/22 Stop Date: 01/03/23 Status: Ordered lisinopril 40 mg oral tablet Start: 07/04/22 15:38:00 EST, See Instructions, Disp# 30 tab, Refills: 5, Take 1 tablet by mouth once daily, Pharmacy: [place] [id number] Start Date: 07/04/22 Status: Ordered montelukast 10 mg oral tablet Start: 12/04/22 11:42:00 EDT, See Instructions, Disp# 30 tab, Refills: 5, TAKE 1 TABLET BY MOUTH ONCE DAILY IN THE EVENING, Pharmacy: [place] [id number] Start Date: 12/04/22 Status: Ordered PARoxetine 20 mg oral tablet Start: 12/04/22 11:42:00 EDT, See Instructions, Disp# 30 tab, Refills: 5, Take 1 tablet by mouth once daily, Pharmacy: [place] [id number] Start Date: 12/04/22 Status: Ordered Mental Status 12/04/22 Barriers to Learning one year None evide nt Mandatory Health Literacy Documentation Yes Health Literacy Communication Barriers N ever Primary Language Yoruba Problem List Condition Confirmation Course Effective Dates [...] Confirmed Active PND (post-nasal drip) Confirmed Active Prediabetes Confirmed Active Seborrheic keratoses Confirmed Active Benítez angioma Confirmed Active Sinusitis Confirmed Active Skin tag Confirmed Active Weight disorder Confirmed Active Diagnosis Diagnosis Type Effective Dates Health Status Clinical Service Informant Family history of heart disease Discharge Diagnosis 12/04/22 Non-Specified ANXIETY Discharge Diagnosis 12/04/22 HBP (high blood pressure) Discharge Diagnosis 12/04/22 Hyperlipidemia Discharge Diagnosis 12/04/22 Colon cancer screening Discharge Diagnosis 12/04/22 Non-Specified Prediabetes Discharge Diagnosis 12/04/22 INSOMNIA Discharge Diagnosis 12/04/22 Procedures Procedure Date Related Diagnosis Body Site [...] the ostiomeatal units are widely patent bilaterally. Vital Signs Most recent to oldest [Reference Range]: 1 Patient Weight 122.4 kg (12/04/22 11:00 AM) Heart Rate 78 bpm (12/04/22 11:00 AM) Respiratory Rate 18 br/min (12/04/22 11:00 AM) Blood Pressure 148/70mmHg (12/04/22 11:00 AM) Social History Social History Type Response Smoking Status Never smoked cigaret santhosh Sex FCM Outpt Note * RUSSEL Padilla Jill Nicole: PERFORM Event Display: FCM Outpt Note Authored Date: [id number] Chief Complaint 4 month F/U. Needs refills on medications. Concerns with sleep issues. History of Present Illness Fransisco is a 57 year old male who presents today for follow up chronic conditions. He notes that for a long time now, he has had difficulty sleeping. He has tried medication in thepast without much improvement. He notes difficulty falling asleep - he feels as though he goes over and over thoughts in his head. However, once he is asleep he finds he stays asleep. He notes a strong family hx of CVD. we discussed blood work results and recommendations for stating medication given his ASCVD score and strong cardiac family hx. He notes that he knows he could be making better dietary choices - enjoys "meat and potatoes." He also drinks regular soda - hehas cut back some but still drinks this consistently. Review of Systems Constitutional: Denies fever, chills, sweats, weakness, fatigue, decreased activity Eye: Denies recent visual problems, blurring, double vision, dry eyes ENMT: Denies dysphagia, sinus pain, sore throat, taste disturbances. Denies decreased hearing, ear pain, ear discharge, nasal discharge. Respiratory: Denies SOB, cough, sputum production, wheezing CV: denies chest pain, palpitations, bradycardia, tachycardia GI: denies n/v/d, constipation, heartburn, abdominal tenderness, change in bowel habits : denies dysuria, hematuria, excessive urination, incontinence, retention, or urgency. Heme/lymph: denies swollen lymph glands or swollen extremities. Endocrine: denies excessive thirst, polyuria, cold or heat intolerance, or hypoglycemia Immunologic: denies recurrent fevers, recurrent infections, or malaise MS: denies muscle or joint pain, decreased range of motion Integumentary: Denies rash, dryness, or skin lesions Neurologic: denies altered mental status, gait disturbance, numbness or tingling Psych: denies anxiety or depression Physical Exam Vitals & Measurements HR:78(Monitored) RR:18 BP:148/70 SpO2:93% WT:122.4kg WT:122.400kg(Dosing) PHQ2 Data(Data Documented on:12/04/2022 11:00) Emotional health assessment NEGATIVE General: alert and oriented, no acute distress Eye: PERRL, EOMI, normal conjunctiva, vision unchanged HENT: normocephalic, TMs clear, normal hearing, moist oral mucosa Neck: supple, non-tender, no thyromegaly Resp: Lungs CTA, non-labored respirations, BS equal, symmetrical expansion CV: normal rate and rhythm, no murmur, no gallop, good pulses equal in all extremities, normal peripheral perfusion, no edema GI: soft, non-tender, non-distended, normal bowel sounds, no organomegaly Lymphatics: no lymphadenopathy neck MS: normal ROM, normal strength, no tenderness, normal gait Integumentary: warm, dry, pink, no cyanosis, intact, moist, no pallor, no rash Neurologic: alert and oriented Psychiatric: calm and cooperative, appropriate mood and affect Assessment/Plan 1.ANXIETY stable chronic continue medication as prescribed continue to monitor 2.HBP (high blood pressure) BP recheck 132/82 encouraged healthy Mediterranean style diet and 150 minutes physical activity as tolerated continue medications as prescribed continue to monitor 3.Hyperlipidemia ASCVD risk 12+ strong cardiac family hx - brother from a heart attack at a young age strongly encouraged/advised a statin medication - risks, benefits, and possible side effects discussed today. He declines stating he would like to trial a healthy diet and physical activity for 3 months first. Risks of waiting to start treatment were discussed. He expresses understanding. We discussed diet as above. encouraged stopping sugary drinks as well. follow up with Dr. Gómez in 3 months - repeat cholesterol screen was ordered. 4.Prediabetes mildly increased A1c today diet and activity as above. Discussed limiting carbohydrates and cutting back on sugary drinks. Establish with ophthalmology follow up in 3 months and PRN 5.INSOMNIA -Develop a daily routine: regular wake up routine -Separate work space from sleep space. -Bring in the light. Keep your workspace brightly lit during the daytime. Absorb as much natural day light as possible. At night keep the lights low for 1-2 hours before bedtime -Step away from the computer during the day -Avoid caffeine especially later in the day -Set boundaries: limit the amount of time you spend checking e-mail. -Planconstructive worry timeset aside 15 minutes-2 hours before bed each night. Write a list with worries or issues of concern to address the next day. -Stay physically and mentally active: plan activities you enjoy -Get other family members on board -Dont stir in bed at night: if you cant initiate or resume sleep within minutes, get up and go to another room or enjoy a quiet activity such as reading. Return to the bedroom once you feel sleepy again. Repeat this as many times as is necessary. Staying in bed can fuel insomnia. -Avoid using any electronic devices two hours before bed time. Consider keeping electronic devices out of your room entirely. hydroxyzine PRN at bedtime keep f/u in 3 months. Attestation A total of44 minutes were spenton direct patient care, documentation,orders, and chart review. Problem List/Past Medical History Ongoing Achilles tendinosis of right ankle Actinic keratosis Acute bacterial sinusitis ANXIETY Atypical nevus Benítez angioma CHRONIC RHINITIS Family history of melanoma H/O moderate sun exposure HBP (high blood pressure) Health maintenance examination Hyperlipidemia Impaired fasting glucose INSOMNIA Multiple nevi Non-allergic rhinitis Plantar fasciitis PND (post-nasal drip) Prediabetes Right foot pain Screening for diabetes mellitus (DM) Screening for lipid disorders Seborrheic keratoses Sinus pressure Sinusitis Skin tag Strain of right biceps Weight disorder Historical Acute sinusitis ROUTINE GENERAL MEDICAL EXAMINATION AT A HEALTH CARE FACILITY Procedure/Surgical History Shave biopsy (09/11/2022)Colonoscopy (01/29/2018)CAT scan (04/03/2016)hernia repair- 2009 Medications dilTIAZem(DilTIAZem (Eqv-Cardizem CD) 180 mg/24 hours oral capsule, extended release), See Instructions fluticasone nasal(Flonase 50 mcg/inh nasal spray), 2 spray, intranasal, Daily, 3 refills hydrOXYzine(hydrOXYzine hydrochloride 25 mg oral tablet), 25 mg= 1 tab, PO, qhs, PRN lisinopril(lisinopril 40 mg oral tablet), See Instructions, 5 refills montelukast(montelukast 10 mg oral tablet), See Instructions, 5 refills PARoxetine(PARoxetine 20 mg oral tablet), See Instructions, 5 refills Allergies NKA Social History Smoking Status Never smoked cigarettes Alcohol - Comments: occasional use Exercise - Occasional exercise Substance Abuse - Denies Substance Abuse Tobacco - Denies Tobacco Use Family History Heart attack: Father. Heart attack: Brother. High Blood Pressure: Mother, Father and Sister. Hyperlipidemia..: Sister. Skin cancer: Mother. Health Status Family Member(s) Immunizations Vaccine Date Status SARS-CoV-2 (COVID-19) mRNA BNT-162b2 vax 09/09/2020 Recorded Comments : 2022-01-03: Historical information-source unspecified SARS-CoV-2 (COVID-19) mRNA BNT-162b2 vax 08/19/2020 Recorded Comments : 2022-01-03: Historical information-source unspecified influenza virus vaccine, inactivated 03/20/2018 Recorded tetanus/diphtheria/pertuss, acel (Tdap) 09/11/2007 Recorded Recommendations Health Maintenance Pending(in the next year) Due Adult Influenza Vaccine due11/18/22and every 1year Adult COVID-19 Vaccination due12/04/22Unknown Frequency Adult Tdap/Td Vaccine due12/04/22Unknown Frequency Hepatitis C Screening due12/04/22One-time only Shingles Vaccine due12/04/22One-time only Due In Future Body Mass Index not due until12/04/23and every 1year Satisfied(in the past 1 year) Satisfied Body Mass Index on08/10/22.Satisfied by KETURAH Sapp Kelley Electronic Signature on File Electronically Reviewed/Signed by: RUSSEL Madsen Author Signature Dt/Tm:12/04/2022 01:38 PM Department of Family Medicine [facility] Patient Care team information Care Team Personnel Name: MD Felipe Jonathan D Position: Physician - Family Med Member Role: Lifetime Relationship Address: Address: [address] [place] [address] Name: MD Dalia [place] Position: Physician - Family Med Member Role: Primary Care Provider Address: Address: [address] [place] [address] Care Team Related Persons Name: MATHEW MARSHALL Address: [place] Address: [place] [address] [place] [id number] Name: MAXIMINO MARSHALL Address: [place] Address: home [address] [facility] [facility] [place] [id number] Name: JORGE A BADILLO Address: home [address] [place], [place] [phone] Name: JORGE A BADILLO Address: [place] Address: home [address] [facility] [place] [phone] Name: MATHEW BADILLO Address: [place] Address: home [address] [facility] [facility] [place] [phone] Name: HUMERA BADILLO Address: [place] Address: home [address] [facility] [place], [place] [phone]
[2023-04-11] MEDS ORDERED: hydrOXYzine HCl 25 MG TAB PO STA (01:05)
[2023-04-11] MEDS ORDERED: ONDANSETRON INJ 2 MG/ML 2 ML VIAL IV PRN (01:50)
[2023-04-11] MEDS ORDERED: ACETAMINOPHEN 325 MG TAB PO PRN (01:50)
[2023-04-11] MEDS ORDERED: POLYETHYLENE (MIRALAX) 17 GM PACK PO PRN (01:50)
[2023-04-11 04:52] LABS: Basophils # (auto) 0.04 K/uL (0.00-0.20); Basophils % (auto) 0.4 %; Eosinophils # (auto) 0.06 K/uL (0.00-0.50); Eosinophils % (auto) 0.6 %; Hematocrit (blood only) 45.1 % (42.0-52.0); Hemoglobin 15.3 g/dl (14.0-18.0); Immature Granulocytes # (auto) 0.03 K/uL (0.01-0.20); Immature Granulocytes % (auto) 0.3 %; Lymphocytes # (auto) 2.22 K/uL (1.20-3.40); Lymphocytes % (auto) 23.9 %; Mean Corpuscular Hemoglobin 30.1 pg (25.0-34.0); Mean Corpuscular Hgb Conc 33.9 g/dL (32.0-36.0); Mean Corpuscular Volume 88.6 fL (80.0-100.0); Mean Platelet Volume 9.4 fL (9.4-12.4); Monocytes # (auto) 0.78 K/uL (0.11-0.59); Monocytes % (auto) 8.4 %; Neutrophils # (auto) 6.16 K/uL (1.40-6.50); Neutrophils % (auto) 66.4 %; Platelet Count 309 K/uL (130-400); RDW Coefficient of Variation 12.5 % (11.5-14.5); Red Blood Count 5.09 M/uL (4.70-6.10); White Blood Count 9.29 K/ul (4.8-10.8)
[2023-04-11 05:08] LABS: Albumin Globulin Ratio 1.3 (0.9-2); BUN Creatinine Ratio 12.7 (10-20); Bilirubin,Total 0.7 mg/dl (0.2-1.0); Calcium 8.8 mg/dl (8.6-10.3); Creatinine Clr Calc Pharmacy 107.7 ml/min; Est GFR (African American) 93.5 ml/min; Est GFR (Non-African American) 80.6 ml/min; Globulin 3.1 gm/dl (2.5-4.0); Potassium 3.8 mmol/L (3.5-5.1); Total Protein 7.1 gm/dl (6.0-8.3)
--- NOTE | 2023-04-11 06:04 | Billing Data ---
Date of Service April 11, 2023 Coding Level of Care Code 78899 INT INP/OBS CARE
--- NOTE | 2023-04-11 07:02 | Hospitalist Progress Note ---
Date of Service April 11, 2023 Assessment & Plan (1) Hypertensive urgency: Plan: 58 year old male coming in for hypertensive urgency. Hypertensive urgency: -History of high blood pressure treated at home with diltiazem 180mg and lis inopril 40mg qHS. -High blood pressure discovered today at urgent care, continues into the ER visit with BP as high as 241/121. -No evidence of end organ damage on blood work, negative CT head. -Given 10mg of IV diltiazem, can continue with 30mg QID until BP stabilizes below 180 systolic and 90 diastolic. -Likely HTN urgency episode secondary to pain from sinuses and anxiety. -Sinus treatment as below. -Anxiety treatment as below. -May be worth while to increase patient's diltiazem to 240mg daily on discharge. -Trend daily cbc and cmp to check for any organ damage. -admit to telemetry. Sinusitis: -CT head showed clear paranasal sinuses and mastoid air cells clear. -Sinusitis symptoms have been since Sunday and not improved (5 days). -Had been on Augmentin without relief. Given dose of doxycycline in the ER. -Given physical exam findings likely some aspect of inflammation of eustachian tube on the R side. -May be allergies, change in weather. -Will continue patient's home singulair, start on Flonase BID. -Could continue doxycycline for anti-inflammatory effect, less suspicion for active bacterial infection at the current time. Anxiety: -Likely big component of the blood pressure stems from anxiety related to recent life stressors in combination with the facial discomfort above. -On paroxetine 20mg daily, patient willing to go up for anxiety. Will increase 30mg for now, continue on discharge. -Can place on hydroxyzine PRN as well. F/E/N/GI: Heart Healthy DVT Prophylaxis: Patient ambulatory no chemoprophylaxis needed, could add if staying more than 1 day. Code: Full Dispo: Telemetry. Patient has outpatient follow up with new PCP Dr. Gómez on 04/24. May benefit from sooner evaluation after discharge for blood pressure. (2) Sinusitis: (3) Anxiety: Admission and Anticipated Discharge Date Admission Date: April 10, 2023 Review of Systems Review of Systems: As per HPI. Results & Data Results & Data Vital Signs (Past 12 Hours) Vital Signs Pulse Pulse Resp BP BP BP Pulse Ox 04/11/23 05:37 91 H 16 151/81 H 94 04/11/23 03:00 90 15 176/100 H 96 04/11/23 02:31 04/11/23 02:31 90 20 194/117 H 96 04/10/23 23:37 98 H 04/10/23 22:50 92 H 15 98 04/10/23 22:40 86 13 97 04/10/23 22:33 89 17 98 04/10/23 22:33 195/110 H 04/10/23 22:30 87 12 99 04/10/23 22:20 136 H 04/10/23 22:10 105 H 23 98 04/10/23 22:00 90 21 99 04/10/23 22:00 207/120 H 04/10/23 21:50 87 17 99 04/10/23 21:40 84 14 98 04/10/23 21:30 169/109 H 04/10/23 21:30 77 15 98 04/10/23 21:22 80 13 97 04/10/23 21:22 201/116 H 04/10/23 21:20 104 H 19 04/10/23 21:10 82 20 98 04/10/23 21:01 79 16 97 04/10/23 21:01 199/121 H 04/10/23 21:00 87 19 96 04/10/23 20:50 78 17 98 04/10/23 20:40 78 18 97 04/10/23 20:30 199/119 H 04/10/23 20:30 82 17 97 04/10/23 20:20 81 19 96 04/10/23 20:10 80 20 95 04/10/23 20:00 84 17 04/10/23 20:00 197/139 H 04/10/23 19:50 81 18 95 04/10/23 19:40 81 20 97 04/10/23 19:39 81 185/110 H 04/10/23 19:38 82 17 97 04/10/23 19:38 185/110 H 04/10/23 19:37 81 197/122 H 04/10/23 19:35 197/122 H 04/10/23 19:35 82 16 95 04/10/23 19:30 178/108 H 04/10/23 19:30 84 14 95 04/10/23 19:23 88 04/10/23 19:20 84 16 94 04/10/23 19:12 83 20 209/111 H 96 04/10/23 19:12 96 O2 Del Method O2 Del Method 04/11/23 05:37 Room Air 04/11/23 03:00 Room Air 04/11/23 02:31 Room Air 04/11/23 02:31 Room Air 04/10/23 23:37 04/10/23 22:50 Room Air 04/10/23 22:40 04/10/23 22:33 04/10/23 22:33 04/10/23 22:30 04/10/23 22:20 04/10/23 22:10 Room Air 04/10/23 22:00 04/10/23 22:00 04/10/23 21:50 04/10/23 21:40 04/10/23 21:30 04/10/23 21:30 04/10/23 21:22 04/10/23 21:22 04/10/23 21:20 04/10/23 21:10 Room Air 04/10/23 21:01 04/10/23 21:01 04/10/23 21:00 04/10/23 20:50 04/10/23 20:40 Room Air 04/10/23 20:30 04/10/23 20:30 04/10/23 20:20 Room Air 04/10/23 20:10 04/10/23 20:00 04/10/23 20:00 04/10/23 19:50 Room Air 04/10/23 19:40 04/10/23 19:39 04/10/23 19:38 04/10/23 19:38 04/10/23 19:37 04/10/23 19:35 04/10/23 19:35 04/10/23 19:30 04/10/23 19:30 04/10/23 19:23 04/10/23 19:20 04/10/23 19:12 Room Air 04/10/23 19:12 Room Air (2) Sinusitis Chronicity: acute Recurrence: not specified as recurrent Sinusitis location: frontal Qualified Code(s): J01.10 - Acute frontal sinusitis, unspecified
[2023-04-11] MEDS ORDERED: dilTIAZem HCL 30 MG TAB PO SCH (09:00)
[2023-04-11] MEDS ORDERED: FLUTICASONE PROPIONATE NA SPR 16 GM BTL SCH (09:00)
[2023-04-11] MEDS ORDERED: amLODIPine BESYLATE 5 MG TAB PO ONE (09:13)
--- NOTE | 2023-04-11 13:14 | Discharge Summary ---
Date of Service April 11, 2023 Admission HPI Per Admitting Provider Fransisco is a 58 year old male w/ PmHx hypertension, anxiety, insomnia coming into the hospital from urgent care for high blood pressure. Patient states that last Sunday he had developed severe sinus pressure at the maxillary, frontal, and ethmoid sinuses. This was accompanied by post-nasal drip. He states that he went to urgent care on that Sunday for evaluation and was treated with Augmentin. Patient stated that by today he was not better from the Augmentin and so decided to go back to urgent care for evaluation. He was told at the urgent care that his blood pressure was elevated to 180/99 and had a neuro exam done without any deficits there. He was recommended to go to the emergency room for further evaluation. At the first visit to urgent care his blood pressure was 140/80. Patient states he has continued pressure over the sinuses but denies fevers, chills, shortness of breath, chest pain, paresthesias. He is on diltiazem 180mg and lisinopril 40mg qhs at home, the diltiazem was increased to 180mg from 120mg not too long ago due to a mild raise in his BP. Patient also states that he has a lot of anxiety/stress right now due to his step son who is in and out of rehab, at the current time in inpatient rehab and had written to patient's a letter blaming her for all the issues in his life. He is on paroxetine 20mg and is willing to go up in the dose. In the ER his blood work was grossly unremarkable for any signs of organ damage, CT head was negative (negative for signs of sinus infection), and CXR was negative. He was given his HS dose of diltiazem and lisinopril as well as 10mg hydralazine, 10mg of IV diltiazem, 100mg doxycycline. Admission Exam Per Admitting Provider Constitutional: WD/WN, vitals as above Eyes: PERRL, conjunctivae normal, anicteric sclerae ENMT: external ear and nose normal, oropharynx normal Ears: + TM abnormality (R TM bulging with clear fluid level behind, still with good cone of light. ) TM on the L normal. Respiratory: normal respiratory effort, lungs clear to auscultation Cardiovascular: RRR, no murmur, no edema Gastrointestinal (Abdomen): normal bowel sounds, soft, nontender, no hepatosplenomegaly Skin: no rashes, warm and dry Psychiatric: A+Ox3, euthymic affect Principal Diagnosis Hypertensive urgency Discharge Exam Constitutional WD/WN, vitals as above Respiratory normal respiratory effort, lungs clear to auscultation Cardiovascular RRR, no murmur, no edema Gastrointestinal (Abdomen) normal bowel sounds, soft, nontender, no hepatosplenomegaly Musculoskeletal no cyanosis or clubbing, extremities motor strength 5/5 Psychiatric A+Ox3, euthymic affect Discharge Data Allergies Allergy/AdvReac Type Severity Reaction Status Date / Time No Known Allergies Verified 04/10/23 19:14 Consultations 04/10/23 21:24 ED Decision to Admit Stat Ordered Studies Labs 04/10/23 04/11/23 17:08 04:01 WBC 8.62 9.29 RBC 5.06 5.09 Hgb 15.2 15.3 Hct 46.1 45.1 MCV 91.1 88.6 MCH 30.0 30.1 MCHC 33.0 33.9 RDW Std Deviation 42.2 41.0 RDW Coeff of Sergio 12.6 12.5 Plt Count 319 309 MPV 9.4 9.4 Immature Gran % (Auto) 0.3 0.3 Neut % (Auto) 57.0 66.4 Lymph % (Auto) 30.2 23.9 Geary % (Auto) 10.0 8.4 Eos % (Auto) 1.9 0.6 Baso % (Auto) 0.6 0.4 Neut # (Auto) 4.92 6.16 Lymph # (Auto) 2.60 2.22 Geary # (Auto) 0.86 H 0.78 H Eos # (Auto) 0.16 0.06 Baso # (Auto) 0.05 0.04 Immature Gran # (Auto) 0.03 0.03 PT 10.2 INR 0.9 APTT 30.9 PTT Ratio 1.1 Sodium 139 138 Potassium 3.9 3.8 Chloride 105 104 Carbon Dioxide 29 25 Anion Gap 5 9 BUN 17 13 Creatinine 1.18 1.02 Est Cr Clr Drug Dosing 93.1 107.7 Est GFR ( Amer) 78.4 93.5 Est GFR (Non-Af Amer) 67.6 80.6 BUN/Creatinine Ratio 14.4 12.7 Glucose 103 H 108 H Calcium 8.9 8.8 Magnesium 2.1 Total Bilirubin 0.3 0.7 AST 18 16 ALT 16 15 Alkaline Phosphatase 93 95 Troponin I High Sens 6.3 Total Protein 7.1 7.1 Albumin 4.0 4.0 Globulin 3.1 3.1 Albumin/Globulin Ratio 1.3 1.3 Lipase 10 L TSH 1.672 Chest X-Ray 04/10/23 16:59 XR chest 1V not portable HISTORY: Hypertension. COMPARISON: None. FINDINGS: The cardiac silhouette is top normal in size. No focal lung consolidations to suggest pneumonia. No evidence for pulmonary edema. No pleural effusions. No pneumothorax. No acute fractures. Hazy appearance to the right medial lung base likely represents prominent mediastinal fat. IMPRESSION: No acute process. ACT 112: Negative or not required by law. Electronically signed by: Juanjo Ferrell M.D. 04/10/2023 5:[address] 04/10/23 16:[address] DOSE: 625.8 mGy.cm HISTORY: Forehead/facial pain with sinus congestion, HTN TECHNIQUE: Multiaxial CT images of the head were performed without the use of intravenous contrast. Automated exposure control was utilized for this study. A dose lowering technique was utilized adhering to the principles of ALARA. Comparison: CT sinuses 04/03/2016. Findings: The paranasal sinuses and mastoid air cells are clear. The calvarium and skull base are intact. The ventricles and sulci are within normal limits. There is no mass, hematoma, midline shift, or acute infarct. Impression: No acute intracranial abnormality. ACT 112: Negative or not required by law. Electronically signed by: Juanjo Ferrell M.D. 04/10/2023 5:22 PM 04/10/23 16:59 CT head/brain wo con Stat Hospital Course (1) Hypertensive urgency: (2) Sinusitis: (3) Anxiety: Issa Moody is a 58 year old male w/ PmHx hypertension, anxiety, insomnia coming into the hospital from urgent care for high blood pressure. Patient states that last Sunday he had developed severe sinus pressure at the maxillary, frontal, and ethmoid sinuses. Hypertensive urgency: -History of high blood pressure treated at home with diltiazem 180mg and lisinopril 40mg qHS. -High blood pressure discovered today at urgent care, continues into the ER visit with BP as high as 241/121. -No evidence of end organ damage on blood work, negative CT head. -Given 10mg of IV diltiazem, amlodipine 5 mg -Likely HTN urgency episode secondary to pain from sinuses and anxiety. See below -Hydrochlorothiazide 12.5 mg was started on discharge -Patient sent with instructions to repeat BMP previous PCP appointment Sinusitis: -CT head showed clear paranasal sinuses and mastoid air cells clear. -Sinusitis symptoms have been for 10 days -Had been on Augmentin without relief. Given dose of doxycycline in the ER -Given physical exam findings likely some aspect of inflammation of eustachian tube on the R side. -May be allergies, change in weather. -Will continue patient's home singulair -Flonase BID Anxiety: -Likely big component of the blood pressure stems from anxiety related to recent life stressors in combination with the facial discomfort above. -On paroxetine 20mg daily - Will increase to 30mg daily Total Time Total Time Spent Total Time Spent (In Minutes): >30 Discharge Plan Discharge Items Patient Disposition: Home - Self-Care Reason For Visit: HYPERTENSIVE URGENCY Discharge Diagnosis: Hypertensive urgency Activity: Resume your previous activity Non-emergency contact: Primary Care Provider Call non-emergency contact if: you have any medication questions, your symptoms worsen and your temperature is above 101 Follow-up/Referrals: PCP,NO [Primary Care Provider] - Diet: Heart Healthy and Low Potassium (2gm) Ambulatory Orders: Basic Metabolic Panel (Routine) Timeframe: 2 Days Location: Determined by Patient Ordered By: Paty Puga Attending Provider Instructions: You were here due to your high blood pressure, when you arrive your BP was over the 200s, this is called hypertensive urgency. You were treated with Antihypertensive medications. It seem that your blood pressure medication is not covering you completely so we will add another medication call hydrochlorothiazide As discussed: You will take hydrochlorothiazide 12.5 mg 1 tab once a day, We sent it to your pharmacy We also recommend healthy changes on lifestyle such as moderate -intensity exercise, low salt diet, stress management. It's important to follow up with your PCP in no more than a week with a lab work up (to check your kidneys) and asses your blood pressure. It is very important that you follow up with them shortly after discharge from the hospital. During this week you can monitor your blood pressure at home to take to your PCP For you sinusitis: Continue Flonase spray, nose irrigation twice a day, and continue the antibiotic regimen. Medications: Your medication list has been reviewed and reconciled upon discharge to ensure accuracy and continuity of care. An updated list of all your medications is included with your hospital discharge paperwork. Please review this list closely, and make note of any changes. Take your medications as instructed; do not skip a dose of your medicines. Make sure all of your doctors know every medicine you are taking (including [id number]-[id number]-[id number] medicines, vitamins, and supplements). Call your primary care provider before taking any new medicines (including etic-utx-sljbkgl medicines, vitamins, and supplements), because some of these may interact with your current medications, or may make your symptoms worse. Tell your primary care provider if you cannot afford your medications. CALL 911 OR GO TO THE EMERGENCY DEPARTMENT if you experience any of the following: Sudden, severe abdominal pain or nausea/vomiting Severe chest pain, or chest pain that radiates (moves) to your jaw or arm Sudden, severe shortness of breath or difficulty breathing Thank you for allowing us to participate in your care. Pending Studies at Discharge: No Stand-Alone Forms: My [facility], Smoking Cessation Medications and DC Order Prescriptions: New hydrochlorothiazide 12.5 mg tablet 12.5 mg PO DAILY Qty: 30 0RF paroxetine HCl 30 mg tablet 30 mg PO DAILY Qty: 30 0RF Continued ibuprofen 200 mg tablet 600 mg PO Q6H PRN (Reason: PAIN/FEVER) acetaminophen [Tylenol Extra Strength] 500 mg Tablet 1,000 mg PO Q6H PRN (Reason: PAIN/FEVER) montelukast [Singulair] 10 mg Tablet 10 mg PO HS diltiazem HCl 180 mg capsule,extended release 24hr 180 mg PO HS lisinopril 40 mg tablet 40 mg PO HS amoxicillin-pot clavulanate 875-125 mg tablet 1 tab PO BID Rx Instructions: STARTED 04/06/23 FOR 10 DAYS Discontinued paroxetine HCl 20 mg tablet 20 mg PO HS Discharge Orders: Discharge Order (Routine); Ordered 04/11/23 Ordered By: Paty Cameron Admission Data Admit Date/Time: 04/10/23 22:31 Attending Provider: Cory Montague Admit Provider: Cornelio Enciso Primary Care Provider: PCP,NO Other Providers: Janak Awan Other Interventions: Discharge Summary Assessment (RN) Last Done: 04/11/23 14:32 Supervising Physician Co-Signing Physician Notes I personally examined the patient and verified all valenzuela points of history and exam, discussed case, and agree with decision making with Dr Taco Cameron Probably spent the better part of an hour in the room. Patient notes facial headache worsening for about 3 weeksstarted with a head cold preceded what feels like a sinus infectionNotes that he is prone to sinusitis. This has been causing a lot of headacheno blurred vision or confusion. No cardiac symptoms such as chest pain/pressure/shortness of breath, no focal neurologic deficits/strokelike symptoms. Also notes that he has been under a lot of stress. He suspects his blood pressure normally runs 1 501 60 systolic, and he was under the impression that his current spikes were probably reactive to the pain and the stress. present at the bedside, answered all questions to the best my ability and to her and his satisfaction. She also noted on multiple layers of admission of his lifestyle that his eating and exercise habits are exceedingly poor. Vitals noted, in general he is awake and alert pleasant no distress. HEENT normocephalic atraumatic mucous membranes moist. Breathing unlabored no accessory muscle use good effort. Skin shows no rashes no pallor or icterus. Neuro without focal deficits. Mental status awake alert intact good recent and remote recall good judgment and insight. Elevated blood pressureI really do suspect this is largely reactive superimpo sed on poorly controlled baseline hypertension. He has absolutely no hypertensive urgency symptoms, is a reliable patient, his is a reliable observer to keep him safehe feels up to going home and safe going home, his agrees, and the agreement would be that he would return ANTONIO should he develop any hypertensive endorgan symptoms, although we all agreed this was extremely unlikely to happen. In the meantime, I suspect his blood pressure being reactive to sinusitis (see below) and stress (see below as well) is superimposed on probably poor baseline controlinitiating hydrochlorothiazide, outpatient follow-up in the office in 1-2 days, labs next week, lifestyle supervisor policy change clerks time. Sinusitiscontinue Augmentin, add Flonase, add Afrin twice daily for about 3 days, add nasal irrigation, give time. Stresseddiscussed overall principles of active stress management. Discussed lifestyle changes both for hypertension and for stress as well as overall health, in the form of exercise as a relates to both, and eating and exercise as it relates to blood pressure. otherwise as above
--- NOTE | 2023-04-11 18:31 | Billing Data ---
Date of Service April 11, 2023 Coding Level of Care Code 36795 INP/OBS DISCH >30 MIN
[2023-04-11] MEDS ORDERED: dilTIAZem HCL 180 MG CAPCR PO SCH (21:00)
[2023-04-11] MEDS ORDERED: MONTELUKAST SODIUM 10 MG TABLET PO SCH (21:00)
[2023-04-11] MEDS ORDERED: PARoxetine HCL 10 MG TAB PO SCH (21:00)
[2023-04-11] MEDS ORDERED: lisinopril 40 MG TAB PO SCH (21:00)
--- NOTE | 2023-04-12 07:01 | Electrocardiogram Report ---
Test Reason : Blood Pressure : / mmHG Vent. Rate : 085 BPM Atrial Rate : 085 BPM P-R Int : 176 ms QRS Dur : 102 ms QT Int : 378 ms P-R-T Axes : 057 099 065 degrees QTc Int : 449 ms Normal sinus rhythm Rightward axis Borderline ECG No previous ECGs available Confirmed by Tj Mcdaniel ([id number]) on 04/12/2023 7:01:00 AM Referred By: REFERRED SELF Confirmed By:Tj Mcdaniel
[2023-04-12] MEDS ORDERED: amLODIPine BESYLATE 5 MG TAB PO SCH (09:00)
== END 2023-04-11 14:33 | disposition home or self-care (01) ==
LOC: EDINP 16:43 → ED 16:43 → SUATTDRO 22:31 → EDINP 04-11 01:49